=== PATIENT | female | born 1980 | race Caucasian/White ===

== ENCOUNTER 2019-03-03 00:28 | Emergency (ER) | payer OTHER ==
[~2019-03-03] VITALS: Ht 157.5 cm; Wt 78.0 kg
[2019-03-03 00:32] VITALS: BP 146/100
--- NOTE | 2019-03-03 00:39 | NUR ---
PT AMBULATED TO BED 9.
--- NOTE | 2019-03-03 00:45 | NUR ---
38/F PRESENTS TO ED WITH FAMILY, C/O BL HAND NUMBNESS, X2 DAYS. PT REPORTS FEELING OF SOB AND "HIVES" X1 MONTH. PT REPORTS FEELING OF "WARMTH" WHICH PT DESCRIBES "HIVES" ON POSTERIOR POPLITEAL, L AXILLARY AND UPPER CHEST; NO HIVES NOTED THROUGHOUT BODY. PT AWAKE AND ALERT, SKIN NORMAL COLOR WARM AND DRY, RR EVEN AND UNLABORED. LUNG SOUNDS CLEAR BL. DENIES MED HX; RX XANAX, BUSPAR, TRIAMCINOLONE CREAM; WITHOUT RELIEF
--- NOTE | 2019-03-03 01:08 | NUR ---
Dr. Murillo examining patient.
[2019-03-03] MEDS ORDERED: LORazepam 2 MG/ML VIAL IM ONE (01:25)
--- NOTE | 2019-03-03 01:40 | NUR ---
ADMINISTERED ATIVAN 2MG IM WITH EDUCATION, PT AND PT'S FAMILY MEMBERS VERBALIZED UNDERSTANDING, TOLERATED MED WELL.
[2019-03-03 02:16] VITALS: BP 108/73
--- NOTE | 2019-03-03 02:16 | NUR ---
DCPatient discharged with v/s stable. Written and verbal after care instructions given and explained. Patient alert, oriented and verbalized understanding of instructions. Ambulatory with steady gait. All questions addressed prior to discharge. ID band removed. Patient advised to follow up with PMD. Rx of FRED given. Patient educated on indication of medication including possible reaction and side effects. Opportunity to ask questions provided and answered.
== END 2019-03-03 02:13 | disposition home or self-care (01) ==
LOC: MED 00:28
DX: F41.0 Panic disorder [episodic paroxysmal anxiety] (principal); G47.00 Insomnia, unspecified
CPT/HCPCS: 96372; 99283; J2060; 99284